=== PATIENT | male | born 1965 | race Caucasian/White ===

== ENCOUNTER 2018-11-22 12:16 | Emergency (ER) | payer OTHER, SELFPAY ==
[2018-11-22 12:20] VITALS: BP 155/95; PULSE 70; RESP 16; TEMP 36.6; O2SAT 94
--- NOTE | 2018-11-22 13:20 | W.ED.GENAD ---
Discharge Plan Disposition Patient Disposition: HOME Condition: Stable Discharge Details Chief Complaint: Laceration Clinical Impression: Laceration of hand, right Primary Care Provider: None,None ED Provider: Russell Ellison Home Meds and New Rx's Prescriptions: No Action No Known Home Meds RF: 0 Discharge Instructions Instructions: Laceration (ED) Additional Instructions: Keep wound clean and dry and initial bandage in place for the first 24 to 48 hours. Then after that continue to watch for any signs of infection such as purulent drainage, significant swelling, fever chills or streaking redness. If these occur you should return to the emergency department immediately for reevaluation. Otherwise return in 12 to 14 days for suture removal Referrals: [facility] Emergency Dept. [Outside] (Return in 12 to 14 days for suture removal) Discharge Data Discharge Date/Time-TO BE ENTERED AT DEPARTURE: 11/22/18 13:27 Medical Decision Making 2.5 cm laceration right hand in between second and third digit. Neurovascular motor intact no other abnormalities noted beyond laceration. Laceration is deep but no deep structure damage is noted. 3 mL's of 2% lidocaine injected. Wound appropriately washed out with copious amounts of fluid. #3 Ethilon 4-0 simple interrupted. Bacitracin placed afterwards and sterile dressing applied by field staff. Patient to return in 12 to 14 days for suture removal. Return precautions were discussed HPI General Mode of arrival: ambulatory. Date/Time Provider Initiated Documentation: 11/22/18 12:25. Limitations to Documentation: no limitations. Information obtained by: patient and RN notes reviewed. History of Present Illness 53 year old M presents to the emergency department with the chief complaint of Right hand lacerations, described as mild, with intensity rated at 3. Quality is described as sharp, and is localized to the right and upper extremity. Patient started experiencing this hour(s) (1) and it has been constant. No relieving factors improve symptom(s), Patient notes no other symptoms.. Patient did receive the following treatments prior to arrival, none Related Data Home Medications Medication Instructions Recorded Confirmed Unknown [No Known Home Meds] 11/22/18 11/22/18 Allergies Allergy/AdvReac Type Severity Reaction Status Date / Time iodine Allergy Intermediate Unverified 11/22/18 12:24 General Stated Complaint: Laceration REGIS: 4 Review of Systems Cardiovascular Denies syncope and Denies lightheadedness Musculoskeletal Denies deformity, Denies limited range of motion and Denies numbness Integumentary/Breasts Reports as per HPI Neurologic Denies syncope, Denies numbness and Denies paresthesias [facility] Social History Alcohol Intake: current Alcohol Intake frequency: holidays/special occasions only Alcohol type: beer Drug use: Never Substance use type: does not use Do you feel safe at home: Yes Do you feel safe in your relationship?: Yes Exam Const General: cooperative and no acute distress Orientation: alert, awake and oriented x3 Limitations: mental status not altered Resp Effort & Inspection: normal respiratory effort and able to speak in complete sentences Cardio Rate: regular rate Rhythm: regular rhythm Neuro General: alert, awake, oriented x3, gait normal, tone normal, moves all extremities, normal light touch, pain and propioception and no focal motor deficits Motor: no movement abnormalities noted Sensory Exam: no sensory deficits noted Extrem General: normal exam except as noted Right upper extremity: hand Details: neuromotor exam normal, neurosensory exam normal, tendon exam normal, normal ROM of fingers and laceration (2.5 cm in web space between 2nd and 3rd digit); no swelling Course Vital Signs Temperature 36.6 C 11/22/18 12:20 Pulse 70 11/22/18 12:20 Respiratory Rate 16 11/22/18 12:20 Blood Pressure 155/95 H 11/22/18 12:20 Pulse Oximetry 94 L 11/22/18 12:20 Temperature 36.6 C 11/22/18 12:20 Temperature Source Skin 11/22/18 12:20 Pulse 70 11/22/18 12:20 Respiratory Rate 16 11/22/18 12:20 Respiratory Effort Non-Labored 11/22/18 12:22 Blood Pressure 155/95 H 11/22/18 12:20 Blood Pressure Position Sitting 11/22/18 12:20 Pulse Oximetry 94 L 11/22/18 12:20 Oxygen Delivery Method Room Air 11/22/18 12:20 Oxygen Flow Rate 0 11/22/18 12:20 Pain Level 3 11/22/18 12:20
--- NOTE | 2018-11-22 13:23 | ED.GENADUL_ITS ---
Discharge Plan Disposition Patient Disposition: HOME Condition: Stable Discharge Details Chief Complaint: Laceration Clinical Impression: Laceration of hand, right Primary Care Provider: None,None ED Provider: Russell Ellison Home Meds and New Rx's Prescriptions: No Action No Known Home Meds RF: 0 Discharge Instructions Instructions: Laceration (ED) Additional Instructions: Keep wound clean and dry and initial bandage in place for the first 24 to 48 hours. Then after that continue to watch for any signs of infection such as purulent drainage, significant swelling, fever chills or streaking redness. If these occur you should return to the emergency department immediately for reevaluation. Otherwise return in 12 to 14 days for suture removal Referrals: [facility] Emergency Dept. [Outside] (Return in 12 to 14 days for suture removal) Discharge Data Discharge Date/Time-TO BE ENTERED AT DEPARTURE: 11/22/18 13:27 Medical Decision Making 2.5 cm laceration right hand in between second and third digit. Neurovascular motor intact no other abnormalities noted beyond laceration. Laceration is deep but no deep structure damage is noted. 3 mL's of 2% lidocaine injected. Wound appropriately washed out with copious amounts of fluid. #3 Ethilon 4-0 simple interrupted. Bacitracin placed afterwards and sterile dressing applied by nurse staff. Patient to return in 12 to 14 days for suture removal. Return precautions were discussed HPI General Mode of arrival: ambulatory . Date/Time Provider Initiated Documentation: 11/22/18 12:25 . Limitations to Documentation: no limitations . Information obtained by: patient and RN notes reviewed . History of Present Illness 53 year old M presents to the emergency department with the chief complaint of Right hand lacerations, described as mild, with intensity rated at 3. Quality is described as sharp, and is localized to the right and upper extremity. Patient started experiencing this hour(s) (1) and it has been constant. No relieving factors improve symptom(s), Patient notes no other symptoms.. Patient did receive the following treatments prior to arrival, none Related Data Home Medications Medication Instructions Recorded Confirmed Unknown [No Known Home Meds] 11/22/18 11/22/18 Allergies Allergy/AdvReac Type Severity Reaction Status Date / Time iodine Allergy Intermediate Unverified 11/22/18 12:24 General Stated Complaint: Laceration REGIS: 4 Review of Systems Cardiovascular Denies syncope and Denies lightheadedness Musculoskeletal Denies deformity, Denies limited range of motion and Denies numbness Integumentary/Breasts Reports as per HPI Neurologic Denies syncope, Denies numbness and Denies paresthesias [facility] Social History Alcohol Intake: current Alcohol Intake frequency: holidays/special occasions only Alcohol type: beer Drug use: Never Substance use type: does not use Do you feel safe at home: Yes Do you feel safe in your relationship?: Yes Exam Const General: cooperative and no acute distress Orientation: alert, awake and oriented x3 Limitations: mental status not altered Resp Effort & Inspection: normal respiratory effort and able to speak in complete sentences Cardio Rate: regular rate Rhythm: regular rhythm Neuro General: alert, awake, oriented x3, gait normal, tone normal, moves all extremities, normal light touch, pain and propioception and no focal motor deficits Motor: no movement abnormalities noted Sensory Exam: no sensory deficits noted Extrem General: normal exam except as noted Right upper extremity: hand Details: neuromotor exam normal, neurosensory exam normal, tendon exam normal, normal ROM of fingers and laceration (2.5 cm in web space between 2nd and 3rd digit); no swelling Course Vital Signs Temperature 36.6 C 11/22/18 12:20 Pulse 70 11/22/18 12:20 Respiratory Rate 16 11/22/18 12:20 Blood Pressure 155/95 H 11/22/18 12:20 Pulse Oximetry 94 L 11/22/18 12:20 Temperature 36.6 C 11/22/18 12:20 Temperature Source Skin 11/22/18 12:20 Pulse 70 11/22/18 12:20 Respiratory Rate 16 11/22/18 12:20 Respiratory Effort Non-Labored 11/22/18 12:22 Blood Pressure 155/95 H 11/22/18 12:20 Blood Pressure Position Sitting 11/22/18 12:20 Pulse Oximetry 94 L 11/22/18 12:20 Oxygen Delivery Method Room Air 11/22/18 12:20 Oxygen Flow Rate 0 11/22/18 12:20 Pain Level 3 11/22/18 12:20
[2018-11-22 13:29] VITALS: BP 155/95; PULSE 70; RESP 16; O2SAT 94
== END 2018-11-22 13:27 | disposition home or self-care (01) ==
PROVIDERS: Emergency Provider Nurse Practitioner Family
DX: S61.412A Laceration without foreign body of left hand, initial encounter (principal); W45.8XXA Other foreign body or object entering through skin, initial encounter
CPT/HCPCS: 12001; 90471

== ENCOUNTER 2018-12-05 09:58 | Emergency (ER) | payer SELFPAY ==
[2018-12-05 10:01] VITALS: BP 172/107; PULSE 88; RESP 18; TEMP 36.8; O2SAT 96
--- NOTE | 2018-12-05 10:11 | W.ED.GENAD ---
Discharge Plan Disposition Patient Disposition: HOME Condition: Good Discharge Details Chief Complaint: GenMedical Clinical Impression: Encounter for removal of sutures, Elevated blood pressure reading Primary Care Provider: None,None ED Provider: Russell Ellison Home Meds and New Rx's Prescriptions: No Action No Known Home Meds RF: 0 Discharge Instructions Instructions: Stitches Removal (ED), Hypertension (ED) Additional Instructions: Please continue to keep your wound clean and dry. We noted a elevated blood pressure today which we recommend you following up with a primary care provider and get it rechecked in the next couple weeks. Return to the emergency department if you develop any severe headache, chest pain, or other symptoms that may be related to elevated blood pressure. Referrals: Primary Care Provider [Outside] Medical Decision Making Patient presenting the emergency department for suture removal. Patient had three sutures placed by myself in between the second and third digits along the webspace of the right hand. Wound is healing well, no signs of dehiscence erythema or purulent drainage. #3 sutures were removed without incident. Of notation was patient did have elevated blood pressure reading in the emergency department. Patient states that he is asymptomatic denies any other complaints. Patient states he does not have a primary care provider and informed him that we could get him a follow-up appointment for recheck of his blood pressure in the next couple weeks with primary care. Patient stated that he would prefer to arrange primary care follow-up on an outpatient basis. Patient was given [employer] information for any assistance that he may need. Return precautions were discussed. Patient does state that he does have episodes of whitecoat syndrome and will continue to monitor pressure on outpatient basis. After discussion of diagnosis and plan of care patient has no further needs, questions, or concerns and states clear understanding to return to the emergency department for any worsening symptoms. HPI General Mode of arrival: ambulatory. Date/Time Provider Initiated Documentation: 12/05/18 10:06. Limitations to Documentation: no limitations. Information obtained by: patient, RN notes reviewed and old records reviewed. History of Present Illness 53 year old M presents to the emergency department with the chief complaint of Suture removal, Quality is described as other (denies pain), Patient started experiencing this week(s) (2) Patient did receive the following treatments prior to arrival, none Related Data Home Medications Medication Instructions Recorded Confirmed Unknown [No Known Home Meds] 11/22/18 11/22/18 Allergies Allergy/AdvReac Type Severity Reaction Status Date / Time iodine Allergy Intermediate Unverified 11/22/18 12:24 General Stated Complaint: GenMedical REGIS: 5 Review of Systems Constitutional Denies chills and Denies fever(s) Musculoskeletal Denies arthralgias Integumentary/Breasts Denies rash and Denies skin swelling PFSH Social History Smoking/Tobacco Use Status: Current every day Tobacco Type: smokeless tobacco Alcohol Intake: current Alcohol Intake frequency: holidays/special occasions only Alcohol type: beer Drug use: Never Substance use type: does not use Do you feel safe at home: Yes Do you feel safe in your relationship?: Yes Exam Const General: cooperative, comfortable and no acute distress Orientation: alert, awake and oriented x3 Skin Rashes: no rashes Trauma: laceration (Right hand second-third web without erythema, purulent, or dehiscence) Course Vital Signs Temperature 36.8 C 12/05/18 10:01 Pulse 88 12/05/18 10:01 Respiratory Rate 18 12/05/18 10:01 Blood Pressure 172/107 H 12/05/18 10:01 Pulse Oximetry 96 12/05/18 10:01 Temperature 36.8 C 12/05/18 10:01 Temperature Source Tympanic 12/05/18 10:01 Pulse 88 12/05/18 10:01 Respiratory Rate 18 12/05/18 10:01 Respiratory Effort 12/05/18 10:01 Blood Pressure 172/107 H 12/05/18 10:01 Pulse Oximetry 96 12/05/18 10:01 Oxygen Delivery Method Room Air 12/05/18 10:01 Oxygen Flow Rate 0 12/05/18 10:01 Pain Level 0 12/05/18 10:01
[2018-12-05 10:13] VITALS: BP 177/120
[2018-12-05 10:14] VITALS: BP 177/120; PULSE 76; RESP 18; O2SAT 96
--- NOTE | 2018-12-05 10:18 | ED.GENADUL_ITS ---
Discharge Plan Disposition Patient Disposition: HOME Condition: Good Discharge Details Chief Complaint: GenMedical Clinical Impression: Encounter for removal of sutures, Elevated blood pressure reading Primary Care Provider: None,None ED Provider: Russell Ellison Home Meds and New Rx's Prescriptions: No Action No Known Home Meds RF: 0 Discharge Instructions Instructions: Stitches Removal (ED), Hypertension (ED) Additional Instructions: Please continue to keep your wound clean and dry. We noted a elevated blood pressure today which we recommend you following up with a primary care provider and get it rechecked in the next couple weeks. Return to the emergency department if you develop any severe headache, chest pain, or other symptoms that may be related to elevated blood pressure. Referrals: Primary Care Provider [Outside] Medical Decision Making Patient presenting the emergency department for suture removal. Patient had three sutures placed by myself in between the second and third digits along the webspace of the right hand. Wound is healing well, no signs of dehiscence erythema or purulent drainage. #3 sutures were removed without incident. Of notation was patient did have elevated blood pressure reading in the emergency department. Patient states that he is asymptomatic denies any other complaints. Patient states he does not have a primary care provider and informed him that we could get him a follow-up appointment for recheck of his blood pressure in the next couple weeks with primary care. Patient stated that he would prefer to arrange primary care follow-up on an outpatient basis. Patient was given [employer] information for any assistance that he may need. Return precautions were discussed. Patient does state that he does have episodes of whitecoat syndrome and will continue to monitor pressure on outpatient basis. After discussion of diagnosis and plan of care patient has no further needs, questions, or concerns and states clear understanding to return to the emergency department for any worsening symptoms. HPI General Mode of arrival: ambulatory . Date/Time Provider Initiated Documentation: 12/05/18 10:06 . Limitations to Documentation: no limitations . Information obtained by: patient, RN notes reviewed and old records reviewed . History of Present Illness 53 year old M presents to the emergency department with the chief complaint of Suture removal, Quality is described as other (denies pain), Patient started experiencing this week(s) (2) Patient did receive the following treatments prior to arrival, none Related Data Home Medications Medication Instructions Recorded Confirmed Unknown [No Known Home Meds] 11/22/18 11/22/18 Allergies Allergy/AdvReac Type Severity Reaction Status Date / Time iodine Allergy Intermediate Unverified 11/22/18 12:24 General Stated Complaint: GenMedical REGIS: 5 Review of Systems Constitutional Denies chills and Denies fever(s) Musculoskeletal Denies arthralgias Integumentary/Breasts Denies rash and Denies skin swelling PFSH Social History Smoking/Tobacco Use Status: Current every day Tobacco Type: smokeless tobacco Alcohol Intake: current Alcohol Intake frequency: holidays/special occasions only Alcohol type: beer Drug use: Never Substance use type: does not use Do you feel safe at home: Yes Do you feel safe in your relationship?: Yes Exam Const General: cooperative, comfortable and no acute distress Orientation: alert, awake and oriented x3 Skin Rashes: no rashes Trauma: laceration (Right hand second-third web without erythema, purulent, or dehiscence) Course Vital Signs Temperature 36.8 C 12/05/18 10:01 Pulse 88 12/05/18 10:01 Respiratory Rate 18 12/05/18 10:01 Blood Pressure 172/107 H 12/05/18 10:01 Pulse Oximetry 96 12/05/18 10:01 Temperature 36.8 C 12/05/18 10:01 Temperature Source Tympanic 12/05/18 10:01 Pulse 88 12/05/18 10:01 Respiratory Rate 18 12/05/18 10:01 Respiratory Effort 12/05/18 10:01 Blood Pressure 172/107 H 12/05/18 10:01 Pulse Oximetry 96 12/05/18 10:01 Oxygen Delivery Method Room Air 12/05/18 10:01 Oxygen Flow Rate 0 12/05/18 10:01 Pain Level 0 12/05/18 10:01
== END 2018-12-05 10:17 | disposition home or self-care (01) ==
PROVIDERS: Emergency Provider Nurse Practitioner Family
DX: S61.412D Laceration without foreign body of left hand, subsequent encounter (principal); W45.8XXD Other foreign body or object entering through skin, subsequent encounter; R03.0 Elevated blood-pressure reading, without diagnosis of hypertension

== ENCOUNTER 2021-07-10 15:07 | Emergency (ER) | payer BC, SELFPAY ==
[2021-07-10] VITALS (7 sets, daily range): BP systolic 229–270; BP diastolic 145–168; PULSE 83–105; RESP 15–25; TEMP 36.7; O2SAT 95–98
--- NOTE | 2021-07-10 15:13 | ED.GENADUL_ITS ---
Discharge Plan Disposition Patient Disposition: HOME Condition: Improving Discharge Details Clinical Impression: Hypertension Primary Care Provider: None,None ED Provider: Yandel Lewis Home Meds and New Rx's Prescriptions: New lisinopril 10 mg tablet 10 mg PO DAILY Qty: 30 RF: 0 potassium chloride 10 mEq capsule, extended release 10 meq PO DAILY Qty: 30 RF: 0 Discharge Instructions Instructions: Hypertension (ED) Additional Instructions: Observe a low-salt diet. Avoid alcohol. Limit your caffeine use to 1 cup/day as you have been. Begin lisinopril once daily as prescribed. Please also take potassium once daily as prescribed. Our care management team will arrange a follow-up for you in primary care clinic for recheck, to establish care, recheck blood pressure and obtain repeat electrolytes as occasionally lisinopril can lead to some potassium loss. Return if you develop chest pain, headache, change to vision, weakness, or any other acute concern. Please follow-up with [facility] in the [facility] as discussed with them. Medical Decision Making This is a 56-year-old male who was referred by a local hospital laboratory technician. He was undergoing routine outpatient eye examination when he was noted to have hypertension on the order of approximately 250/150. His exam showed retinal edema with hemorrhages, and for this retinopathy, he is being referred to the [facility]. He was recommended to seek evaluation in his local emergency department due to having no current primary care. He has been asymptomatic. He was last noted to have an elevated blood pressure reading on emergency department visit December 2018. Given the patient's finding on funduscopic examination, he likely has longstanding hypertension that has been untreated and he has been lost to routine primary care. Screening EKG obtained which shows evidence of LVH. Screening laboratories and urinalysis obtained. Sodium was 138 with potassium 3.0 which was supplemented in the ED. BUN 27 creatinine 1.5. Troponin negative at 60 ng/L. Urinalysis with protein present. White blood cell count slightly elevated at 12, 45, platelets 204. Patient initiated on 10 mg of lisinopril. Will have care management arrange short-term follow-up in primary care recheck HPI General Mode of arrival: ambulatory . Date/Time Provider Initiated Documentation: 07/10/21 15:07 . Limitations to Documentation: no limitations . Information obtained by: patient . History of Present Illness 56 year old M presents to the emergency department with the chief complaint of Elevated blood pressure, retinal edema at optometry appointment. Yes somew, and is localized to the eyes. Patient started experiencing this unknown No relieving factors improve symptom(s), No exacerbating factors reported . Patient notes no other symptoms.. Related Data Home Medications Medication Instructions Recorded Confirmed lisinopril 10 mg PO DAILY #30 tab 07/10/21 potassium chloride 10 meq PO DAILY #30 cap 07/10/21 Previous Rx's Medication Instructions Recorded lisinopril 10 mg PO DAILY #30 tab 07/10/21 potassium chloride 10 meq PO DAILY #30 cap 07/10/21 Allergies Allergy/AdvReac Type Severity Reaction Status Date / Time iodine Allergy Intermediate Unverified 11/22/18 12:24 General REGIS: 5 Review of Systems Narrative: Denies chest pain or palpitations. No headache. He denies to me visual changes. No change to urine. 6 systems reviewed and otherwise negative PFSH All Active Problems (Updated 07/10/21 @ 15:44 by Yandel Lewis MD) Hypertension (Chronic) Social History Smoking/Tobacco Use Status: Current every day Tobacco Type: smokeless tobacco Smoking risk assessment performed?: Yes Alcohol Intake: current Alcohol Intake frequency: holidays/special occasions only Alcohol type: beer Drug use: Never Substance use type: does not use Do you feel safe at home: Yes Do you feel safe in your relationship?: Yes Exam Narrative Exam Narrative: GEN: awake, alert, oriented 3. Pleasant, well groomed, interactive. HEAD: Normocephalic, atraumatic ENT: Mucous membranes moist, oropharynx unremarkable, External ear exam unremarkable EYES: PERRL, EOMI NECK: Full ROM, no URBANO, no menigismus CHEST/RESP: Nontender, clear to auscultation bilateral, no wheeze/rhonchi/rales CARDIOVASCULAR: RRR, no murmur, rub nicole. 2+ Rad pulse bilateral ABDOMEN: Soft, nontender, no mass. +Bowel sounds EXT: Full ROM, no edema, no rash Neuro: Grossly normal neurologic exam, conversant, interactive. Psych: Speech fluent, thoughts congruent, affect normal
--- NOTE | 2021-07-10 15:15 | RT.EKG_ITS ---
APPROVED REPORT Exam: Resting ECG Reason for Exam: hypertension Patient Location: E HR:95 bpm ECG Measurements Heart Rate 95 AXIS DC 201 P 44 QRSd 110 QRS 10 QT 405 T 11 QTc 511 Conclusion Sinus rhythm...normal P axis, V-rate 60- 99 Borderline prolonged DC interval...DC >197, V-rate 91-120 Left ventricular hypertrophy...multiple voltage criteria Prolonged QT interval...QTc >500mS
[2021-07-10] MEDS: Lisinopril 10 MG TAB PO (15:46)
[2021-07-10 15:54] LABS: Abs Immature Grans 0.05 10^3/uL (0.0-0.06); Absolute Basophil Count 0.07 10^3/uL (0.0-0.2); Absolute Monocyte Count 0.89 10^3/uL (0.1-0.8); Absolute Neutrophil Count 9.04 10^3/uL (1.2-6.7); Basophils % 0.6; Eosinophils % 0.6; HCT 45.1 % (40.0-50.0); HGB 15.4 g/dL (13.5-17.5); Immature Grans % 0.4; Lymphocytes % 18.5; MCH 29.6 pg (27.0-33.0); MCHC 34.1 % (32.0-36.0); MCV 86.7 fL (80-95); MPV 10.8 fL (8.0-11.0); Monocytes % 7.2; Neutrophils % 72.7; Nucleated RBC 0 %; Platelet Count 204 10^3/uL (130-400); RDW 12.4 % (11.8-14.1); RDW-SD 39.4 fL; WBC 12.43 10^3/uL (4.4-10.8)
[2021-07-10 15:56] LABS: Bilirubin Negative (Negative); Blood Moderate (Negative); Clarity Clear (Clear); Glucose Negative (Negative); Ketones Negative (Negative); Leukocyte Esterase Negative (Negative); Nitrite Negative (Negative); Urobilinogen 0.2 EU/dL (Up TO 0.2)
[2021-07-10 15:59] LABS: ALT 40 U/L (16-63); AST 33 U/L (15-37); Albumin 4.5 g/dL (3.4-5.0); Alkaline Phosphatase 61 U/L (46-116); Anion Gap 10.7 mmol/L (3-11); BUN 27 mg/dL (7-18); Bilirubin, Total 0.6 mg/dL (0.2-1.0); CO2 28.3 mmol/L (21.0-32.0); CREATININE 1.5 mg/dL (0.70-1.30); Calcium 9.2 mg/dL (8.5-10.1); Chloride 99 mmol/L (98-107); Estimated GFR 48.77 (mL/min/1.73m2); Glucose 102 mg/dL (74-106); Magnesium 2.3 mg/dL (1.8-2.4); Sodium 138 mmol/L (136-145); Total Protein 8.8 g/dL (6.4-8.2); Troponin I 60 ng/L (<or=60)
[2021-07-10 16:03] LABS: Absolute Eosinophil Count 0.07 10^3/uL (0.0-0.7)
[2021-07-10 16:09] LABS: Bacteria Negative HPF (Negative); Casts Negative LPF (Negative); Crystals Negative HPF (Negative); Epithelial Cells Negative HPF (Negative); Mucus Negative (Negative); Other Cells Negative (Negative); WBC 0-2 HPF (0-5)
[2021-07-10 16:10] LABS: C & S Indicated? No
[2021-07-10] MEDS: Potassium Chloride Liquid 20 MEQ PKT PO (16:13)
--- NOTE | 2021-07-10 16:40 | NUR.NOTE ---
patient's potassium and lisinopril called into [facility] in [place].
--- NOTE | 2021-07-10 18:00 | NUR.NOTE ---
Nursing Note: referral to [facility] for pcp for follow up this week.
== END 2021-07-10 16:39 | disposition home or self-care (01) ==
PROVIDERS: Emergency Provider Emergency Medicine
DX: I10 Essential (primary) hypertension (principal); F17.210 Nicotine dependence, cigarettes, uncomplicated; E87.6 Hypokalemia
CPT/HCPCS: 36415; 80053; 93005; 99283; 81003; 81015; 83735; 84484; 85025; 93010

== ENCOUNTER 2021-07-16 09:31 | Outpatient (REF) | payer BC, SELFPAY ==
[2021-07-16 17:46] LABS: Anion Gap 12.1 mmol/L (3-11); BUN 26 mg/dL (7-18); CO2 22.9 mmol/L (21.0-32.0); CREATININE 1.4 mg/dL (0.70-1.30); Calcium 9.1 mg/dL (8.5-10.1); Chloride 104 mmol/L (98-107); Estimated GFR 52.81 (mL/min/1.73m2); Glucose 92 mg/dL (74-106); Potassium 4.3 mmol/L (3.5-5.1); Sodium 139 mmol/L (136-145)
== END 2021-07-16 09:32 | disposition home or self-care (01) ==
LOC: NCHCN 09:31
PROVIDERS: Visit Provider Nurse Practitioner Family
DX: I10 Essential (primary) hypertension (principal)
CPT/HCPCS: 80048

== ENCOUNTER 2021-07-17 15:28 | Outpatient (REF) | payer BC, SELFPAY | END 2021-07-17 15:29 | disposition home or self-care (01) | LOC: NCHCN 15:28 | PROVIDERS: Visit Provider Nurse Practitioner Family ==

== ENCOUNTER 2021-07-18 02:38 | Outpatient (CLI) | payer BC, SELFPAY ==
[2021-07-22 15:39] LABS: Renin Activity, Plasma 6.8 ng/mL/h
== END 2021-07-18 02:39 | disposition home or self-care (01) ==
LOC: LBO 02:38
PROVIDERS: Visit Provider Nurse Practitioner Family
DX: I10 Essential (primary) hypertension (principal); E87.6 Hypokalemia; I51.7 Cardiomegaly
CPT/HCPCS: 36415; 82088; 84244

== ENCOUNTER 2021-08-06 17:39 | Outpatient (REF) | payer BC, SELFPAY ==
[2021-08-06 19:40] LABS: COMMENT (LAB VIEW ONLY) 52.45 mg/dL; PROTEIN < 6.0 mg/dL
[2021-08-06 20:03] LABS: Anion Gap 11.3 mmol/L (3-11); BUN 30 mg/dL (7-18); CO2 24.7 mmol/L (21.0-32.0); Calcium 9.8 mg/dL (8.5-10.1); Calculated LDL 113 mg/dL (<100); Chloride 102 mmol/L (98-107); Cholesterol 208 mg/dL (<200); Estimated GFR 34.99 (mL/min/1.73m2); Glucose 101 mg/dL (74-106); HDL Cholesterol 35 mg/dL (40-60); Potassium 4.5 mmol/L (3.5-5.1); Sodium 138 mmol/L (136-145); Triglyceride 304 mg/dL (<150)
== END 2021-08-06 17:40 | disposition home or self-care (01) ==
LOC: NCHCN 17:39
PROVIDERS: Visit Provider Nurse Practitioner Family
DX: I10 Essential (primary) hypertension (principal); E87.6 Hypokalemia; I51.7 Cardiomegaly
CPT/HCPCS: 80048; 80061; 82565; 84156

== ENCOUNTER 2021-08-13 18:10 | Outpatient (REF) | payer BC, SELFPAY ==
[2021-08-13 19:21] LABS: Anion Gap 10.5 mmol/L (3-11); BUN 29 mg/dL (7-18); CO2 26.5 mmol/L (21.0-32.0); CREATININE 1.9 mg/dL (0.70-1.30); Calcium 8.9 mg/dL (8.5-10.1); Chloride 104 mmol/L (98-107); Estimated GFR 37.13 (mL/min/1.73m2); Glucose 98 mg/dL (74-106); Potassium 4.2 mmol/L (3.5-5.1); Sodium 141 mmol/L (136-145)
== END 2021-08-13 18:11 | disposition home or self-care (01) ==
LOC: NCHCN 18:10
PROVIDERS: Visit Provider Nurse Practitioner Family
DX: I10 Essential (primary) hypertension (principal); I51.7 Cardiomegaly
CPT/HCPCS: 80048

== ENCOUNTER 2021-09-09 20:53 | Outpatient (REF) | payer BC, SELFPAY ==
[2021-09-09 21:34] LABS: Anion Gap 10.5 mmol/L (3-11); BUN 25 mg/dL (7-18); CO2 26.5 mmol/L (21.0-32.0); CREATININE 1.5 mg/dL (0.70-1.30); Calcium 9.5 mg/dL (8.5-10.1); Chloride 102 mmol/L (98-107); Estimated GFR 48.77 (mL/min/1.73m2); Glucose 104 mg/dL (74-106); Potassium 4.2 mmol/L (3.5-5.1); Sodium 139 mmol/L (136-145)
== END 2021-09-09 20:54 | disposition home or self-care (01) ==
LOC: NCHCN 20:53
PROVIDERS: Visit Provider Nurse Practitioner Family
DX: I10 Essential (primary) hypertension (principal); I51.7 Cardiomegaly
CPT/HCPCS: 80048

== ENCOUNTER 2021-09-15 01:17 | Outpatient (CLI) | payer BC, SELFPAY ==
--- NOTE | 2021-09-15 14:00 | DI.US_ITS ---
APPROVED REPORT EXAM: Comprehensive 2D, Doppler, and color-flow Echocardiogram Patient Location: Out-Patient Peanut Cleaner: Cammie Calero RDCS (AE) Indications: Severe HTN, LVH on EKG Other Information Study Quality: Adequate Conclusion Normal left ventricular wall thickness and chamber size. Estimated ejection fraction is 55 to 60%. Wall motion is normal Normal right ventricular size and systolic function Both atria are normal in size There are no significant structural valvular abnormalities Trace to mild aortic regurgitation Wall motion Left Ventricle The left ventricle is normal size. The left ventricular systolic function is normal. The left ventric ular ejection fraction is within the normal range. There is normal left ventricular wall thickness. T here is normal LV segmental wall motion. There is no ventricular septal defect visualized. LVEF is 56 %. Right Ventricle The right ventricle is normal size. The right ventricular systolic function is normal. Atria The left atrium size is normal. The right atrium size is normal. The interatrial septum is intact wit h no evidence for an atrial septal defect. Aortic Valve The aortic valve is normal in structure. Aortic valve is trileaflet. There is no aortic valvular sten osis. Trace to mild aortic regurgitation. Mitral Valve The mitral valve is normal in structure. No evidence of mitral valve stenosis. Trace mitral regurgita tion. Tricuspid Valve The tricuspid valve is normal in structure. There is no tricuspid valve stenosis. Trace tricuspid reg urgitation. Unable to assess PA pressure. Pulmonic Valve The pulmonary valve is normal in structure. There is no pulmonic valvular stenosis. Trace pulmonic re gurgitation. Great Vessels The aortic root is normal in size. The ascending aorta is normal in size. Aortic arch is normal in ca liber. IVC is normal in size and collapses >50% with inspiration. Pericardium There is no pericardial effusion. 2D Dimensions IVSD d PLAX 1.25 cm M: 0.6-1.2 LV Vol A2C d MOD 148.9 mL LVPW d PLAX 1.21 cm M: 0.6 - 1.2 LV Vol A4C d MOD 181.9 mL LVID d PLAX 4.76 cm M: 4.2 - 5.8 LA vol/ BSA A2C s A-L 26.1 mL/m2 LVDs 3.40 cm M: 2.5 - 4.0 LA Area A2C s MOD 19.63 cm2 Ao Root d 2.96 cm M: 3.1 - 3.7 LV EF A4C MOD 56.3 % RA Area A4C 14.74 cm2 LV EF A2C MOD 55.5 % RA Vol/ BSA A4C s A-L 17.2 mL/m2 LV EF Biplane MOD 57.6 % Ao Asc Diam d 3.44 cm M: 2.6 - 3.4 SV 101.49 mL LV EF Teichholz 54.4 % SV Index 44.56 mL/m2 LVEF (Reyes's) 57.60 % M: 52 - 72 LV Volume 126.78 mL M: 62 - 150 LV Volume Index 55.85 mL/m2 M: 34 - 74 LV Vol Biplane MOD 176.2 mL FS 28.15 % M-Mode TAPSE 2.51 cm (M/F) >1.7 LV Diastology MV E' medial 0.058 (>0.07 m/s) E/A Ratio 0.7 LV E/e MED 8.85 (<14) MV E Vmax 0.51 (0.4-1.3 m/s) MV E' lateral 0.060 (>0.1 m/s) MV A Vmax 0.70 (0.4-1.3 m/s) LV E/e LAT 8.55 (<14) MV E/A Ratio 0.70 MV E/E' medial 8.86 MV E/E' lateral 8.57 Aortic Valve LVOT Area 3.58 cm2 AoV Area Vmax 2.57 cm2 LVOT Vmax 1.35 m/s AoV Area/ BSA (Vmax) 1.13 cm2/m2 LVOT Mean Jordy. 0.89 m/s SHANNAN Mean Jordy. 2.41 cm2 LVOT Peak Grad 7.3 mmHg SHANNAN Mean Jordy. Index 1.06 cm2/m2 LVOT Mean Grad 3.9 mmHg AR DT 3271 msec LVOT VTI 0.248 m AR PHT 949 msec LVOT Diam s 2.10 cm AoV Vmax 1.88 m/s Velocity Ratio 0.71 AoV Mean Jordy. 1.33 m/s AoV Peak Grad 14.2 mmHg LVOT SV 88.79 mL AoV Mean Grad 8.0 mmHg AoV VTI 0.330 m AoV Area VTI 2.69 cm2 AoV Area/ BSA (VTI) 1.18 cm/m2 Mitral Valve MV DT 361 (160-240 msec) MV PHT 105 msec MV Area PHT 2.10 cm2 MV VTI 0.209 m MV Area VTI 4.26 (4.0-6.0 cm2) Pulmonary Valve PV Vmax 1.08 (0.5-1.5 m/s) RVOT Peak Gr. 3.31 mmHg PV Peak Grad 4.7 mmHg RVOT Mean Gr. 1.45 mmHg PV Mean Grad 2.3 mmHg RVOT VTI 0.156 m PV VTI 0.182 m RVOT Vmax 0.91 m/s
== END 2021-09-15 01:37 ==
PROVIDERS: Visit Provider Nurse Practitioner Family
DX: I10 Essential (primary) hypertension (principal); R94.31 Abnormal electrocardiogram [ECG] [EKG]
CPT/HCPCS: 93306

== ENCOUNTER 2021-09-22 13:22 | Outpatient (CLI) | payer BC, SELFPAY ==
--- NOTE | 2021-09-22 13:15 | RT.EKG_ITS ---
APPROVED REPORT Exam: Resting ECG Reason for Exam: HTN Patient Location: O HR:68 bpm ECG Measurements Heart Rate 68 AXIS AL 154 P 26 QRSd 113 QRS 5 QT 402 T -7 QTc 428 Conclusion Sinus rhythm...normal P axis, V-rate 50- 99 Probable left atrial enlargement...P >50mS, <-0.10mV V1 LVH with minor repolarization abnormalities
== END 2021-09-22 13:23 | disposition home or self-care (01) ==
LOC: DI.CARD 13:23
PROVIDERS: Visit Provider Internal Medicine Cardiovascular Disease
DX: I10 Essential (primary) hypertension; I51.7 Cardiomegaly
CPT/HCPCS: 93010

== ENCOUNTER → 2021-10-09 02:33 | Outpatient (CLI) | payer BC, SELFPAY ==
--- NOTE | 2021-10-09 | DI.US_ITS ---
Exam(s) US RENAL EXAM: US RENAL CLINICAL HISTORY: HYPERTENSION I10, (VO) PER , WANTS TO EVALUATE STRUCTURE OF KIDNEYS TECHNIQUE: Ultrasound performed using standard protocol. COMPARISON: US US ECHOCARDIOGRAM from 09/15/2021 FINDINGS: Kidneys are normal in size and shape. There is no hydronephrosis. There is an incidental 6 millimet er right renal cortical cyst. There are a couple of tiny echogenic foci of the upper pole of the lef t kidney which may represent nonobstructing renal calculi. Urinary bladder contains 48 cc. The patient was unable to void. Bladder is grossly unremarkable as visualized. IMPRESSION: Possible nonobstructing left upper pole renal calculi, renal colic CT may be obtained for confirmatio n if clinically appropriate. DATA REPOSITORY:
== END ==
PROVIDERS: PCP Nurse Practitioner Family; Visit Provider Nurse Practitioner Family
CPT/HCPCS: 76770

== ENCOUNTER 2022-06-22 19:03 | Outpatient (REF) | payer BC, SELFPAY ==
[2022-06-22 19:53] LABS: Abs Immature Grans 0.02 10^3/uL (0.0-0.06); Absolute Basophil Count 0.07 10^3/uL (0.0-0.2); Absolute Eosinophil Count 0.11 10^3/uL (0.0-0.7); Absolute Lymphocyte Count 2.69 10^3/uL (1.2-3.4); Absolute Neutrophil Count 4.35 10^3/uL (1.2-6.7); Basophils % 0.9; Eosinophils % 1.4; HCT 43.4 % (40.0-50.0); HGB 14.8 g/dL (13.5-17.5); Immature Grans % 0.3; Lymphocytes % 33.9; MCH 29.5 pg (27.0-33.0); MCHC 34.1 % (32.0-36.0); MCV 87 fL (80-95); MPV 11.1 fL (8.0-11.0); Monocytes % 8.8; Neutrophils % 54.7; Platelet Count 229 10^3/uL (130-400); RBC 5.02 10^6/uL (4.36-5.78); RDW 12.9 % (11.8-14.1); WBC 7.94 10^3/uL (4.4-10.8)
[2022-06-22 20:05] LABS: ALT 47 U/L (16-63); AST 36 U/L (15-37); Albumin 4.2 g/dL (3.4-5.0); Alkaline Phosphatase 54 U/L (46-116); Anion Gap 8.3 mmol/L (3-11); BUN 25 mg/dL (7-18); Bilirubin, Total 0.4 mg/dL (0.2-1.0); CO2 28.7 mmol/L (21.0-32.0); CREATININE 1.4 mg/dL (0.70-1.30); Calcium 9.4 mg/dL (8.5-10.1); Chloride 100 mmol/L (98-107); Estimated GFR 59.36 (mL/min/1.73m2); Glucose 98 mg/dL (74-106); Potassium 3.2 mmol/L (3.5-5.1); Sodium 137 mmol/L (136-145); Total Protein 8.3 g/dL (6.4-8.2)
[2022-06-23 18:48] LABS: PSA, Screening 0.6 ng/mL (<=3.5)
== END 2022-06-22 19:04 | disposition home or self-care (01) ==
LOC: NCHCN 19:03
PROVIDERS: PCP Nurse Practitioner Family; Visit Provider Nurse Practitioner Family
DX: I10 Essential (primary) hypertension (principal); E87.6 Hypokalemia; E78.5 Hyperlipidemia, unspecified; Z12.5 Encounter for screening for malignant neoplasm of prostate; F17.221 Nicotine dependence, chewing tobacco, in remission
CPT/HCPCS: 80053; 84153; 85025

== ENCOUNTER 2023-04-27 16:43 | Outpatient (REF) | payer BC, SELFPAY ==
[2023-04-27 16:04] LABS: HGB 16.2 g/dL (13.5-17.5); MCH 31.2 pg (27.0-33.0); MCV 87 fL (80-95); MPV 12.2 fL (8.0-11.0); Platelet Count 239 10^3/uL (130-400); RDW 12.7 % (11.8-14.1); RDW-SD 39.8 fL; WBC 8.95 10^3/uL (4.4-10.8)
[2023-04-27 16:09] LABS: Albumin 3.8 g/dL (3.4-5.0); Alkaline Phosphatase 56 U/L (46-116); Anion Gap 13.6 mmol/L (3-11); BUN 23 mg/dL (7-18); Bilirubin, Total 0.6 mg/dL (0.2-1.0); CO2 22.4 mmol/L (21.0-32.0); CREATININE 1.5 mg/dL (0.70-1.30); Calcium 9.2 mg/dL (8.5-10.1); Chloride 99 mmol/L (98-107); Glucose 199 mg/dL (74-106); Potassium 3.3 mmol/L (3.5-5.1); Sodium 135 mmol/L (136-145)
[2023-04-27 16:34] LABS: Total Protein 7.9 g/dL (6.4-8.2)
[2023-04-27 17:14] LABS: ALT 53 U/L (16-63)
[2023-04-27 17:31] LABS: AST 46 U/L (15-37)
== END 2023-04-27 16:44 | disposition home or self-care (01) ==
LOC: NCHCN 16:43
PROVIDERS: PCP Nurse Practitioner Family; Visit Provider Nurse Practitioner Family
DX: I10 Essential (primary) hypertension (principal)
CPT/HCPCS: 80053; 85027

== ENCOUNTER 2023-05-24 18:54 | Outpatient (REF) | payer BC, SELFPAY ==
[2023-05-24 17:13] LABS: Hemoglobin A1C 6.6 % (<5.7)
== END 2023-05-24 18:55 | disposition home or self-care (01) ==
LOC: NCHCN 18:54
PROVIDERS: PCP Nurse Practitioner Family; Visit Provider Nurse Practitioner Family
DX: R73.9 Hyperglycemia, unspecified (principal)
CPT/HCPCS: 83036

== ENCOUNTER 2023-09-17 09:52 | Outpatient (CLI) | payer BC, SELFPAY ==
--- NOTE | 2023-09-17 09:45 | RT.EKG_ITS ---
APPROVED REPORT Exam: Resting ECG Reason for Exam: follow up Patient Location: O HR:68 bpm ECG Measurements Heart Rate 68 AXIS NJ 180 P 46 QRSd 115 QRS 15 QT 442 T 7 QTc 471 Conclusion Sinus rhythm...normal P axis, V-rate 50- 99 Nonspecific intraventricular conduction delay...QRSd >115mS, not LBBB/RBBB Baseline wander in lead(s) V3,V4
== END 2023-09-17 09:53 | disposition home or self-care (01) ==
LOC: DI.CARD 09:53
PROVIDERS: PCP Nurse Practitioner Family; Visit Provider Internal Medicine Cardiovascular Disease
DX: E87.6 Hypokalemia (principal)
CPT/HCPCS: 93010

== ENCOUNTER 2024-05-01 16:05 | Outpatient (REF) | payer BC, SELFPAY ==
[2024-05-01 19:13] LABS: HCT 47.5 % (40.0-50.0); HGB 16.2 g/dL (13.5-17.5); MCH 30.3 pg (27.0-33.0); MCHC 34.1 % (32.0-36.0); MCV 89 fL (80-95); MPV 11.8 fL (8.0-11.0); Platelet Count 221 10^3/uL (130-400); RBC 5.34 10^6/uL (4.36-5.78); RDW 12.8 % (11.8-14.1)
[2024-05-01 19:35] LABS: Hemoglobin A1C 6.5 % (<5.7)
[2024-05-01 19:52] LABS: ALT 56 U/L (16-63); AST 38 U/L (15-37); Albumin 4.1 g/dL (3.4-5.0); Alkaline Phosphatase 59 U/L (46-116); Anion Gap 10.5 mmol/L (3-11); BUN 25 mg/dL (7-18); Bilirubin, Total 0.38 mg/dL (0.2-1.0); CO2 27.5 mmol/L (21.0-32.0); CREATININE 1.7 mg/dL (0.70-1.30); Calcium 9.4 mg/dL (8.5-10.1); Chloride 99 mmol/L (98-107); Cholesterol 210 mg/dL (<200); Estimated GFR 46.44 (mL/min/1.73m2); Glucose 171 mg/dL (74-106); HDL Cholesterol 37 mg/dL (40-60); Potassium 3.5 mmol/L (3.5-5.1); Sodium 137 mmol/L (136-145); Total Protein 7.7 g/dL (6.4-8.2); Triglyceride 609 mg/dL (<150)
[2024-05-01 20:10] LABS: LDL CHOLESTEROL 93 mg/dL (<100)
[2024-05-02 18:36] LABS: Hepatitis C Ab w Rflx HCV PCR Negative (Negative)
== END 2024-05-01 16:06 | disposition home or self-care (01) ==
LOC: NCHCN 16:05
PROVIDERS: PCP Nurse Practitioner Family; Visit Provider Nurse Practitioner Family
DX: R73.03 Prediabetes (principal)
CPT/HCPCS: 80053; 80061; 83721; 85027; 86803; 83036

== ENCOUNTER 2024-08-21 10:49 | Outpatient (REF) | payer BC, SELFPAY ==
[2024-08-21 15:33] LABS: HCT 46.5 % (40.0-50.0); HGB 15.5 g/dL (13.5-17.5); MCH 29.3 pg (27.0-33.0); MCHC 33.3 % (32.0-36.0); MCV 88 fL (80-95); MPV 11.3 fL (8.0-11.0); Platelet Count 229 10^3/uL (130-400); RBC 5.29 10^6/uL (4.36-5.78); RDW 13.1 % (11.8-14.1); RDW-SD 42.2 fL; WBC 9.06 10^3/uL (4.4-10.8)
[2024-08-21 15:48] LABS: ALT 50 U/L (16-63); AST 39 U/L (15-37); Albumin 4.1 g/dL (3.4-5.0); Alkaline Phosphatase 61 U/L (46-116); Anion Gap 7.5 mmol/L (3-11); BUN 21 mg/dL (7-18); Bilirubin, Total 0.6 mg/dL (0.2-1.0); CO2 31.5 mmol/L (21.0-32.0); CREATININE 1.4 mg/dL (0.70-1.30); Calcium 9.6 mg/dL (8.5-10.1); Calculated LDL 105 mg/dL (<100); Chloride 100 mmol/L (98-107); Cholesterol 182 mg/dL (<200); Estimated GFR 58.62 (mL/min/1.73m2); Glucose 122 mg/dL (74-106); HDL Cholesterol 46 mg/dL (>or=40); Potassium 3.3 mmol/L (3.5-5.1); Sodium 139 mmol/L (136-145); Total Protein 7.9 g/dL (6.4-8.2); Triglyceride 156 mg/dL (<150)
[2024-08-21 15:50] LABS: Hemoglobin A1C 6.3 % (<5.7)
== END 2024-08-21 10:50 | disposition home or self-care (01) ==
LOC: NCHCN 10:49
PROVIDERS: PCP Nurse Practitioner Family; Visit Provider Nurse Practitioner Family
DX: E78.5 Hyperlipidemia, unspecified (principal); R73.03 Prediabetes; N28.9 Disorder of kidney and ureter, unspecified
CPT/HCPCS: 80053; 80061; 85027; 83036